=== PATIENT | male | born 1950 | race African-American/Black ===

== ENCOUNTER 2016-06-07 08:34 | Emergency (ER) | payer MEDICARE ==
[~2016-06-07] VITALS: Ht 165.1 cm; Wt 81.6 kg
[~2016-06-07 08:34] MED LIST: ASPI-482 PO; HYDR25TA9 PO
[2016-06-07 08:49] VITALS: BP 158/77
[2016-06-07] MEDS ORDERED: LIDOCAINE 1% / SOD BICARB 8.4% 20 ML VIAL. IJ ONE (09:00)
[2016-06-07] MEDS ORDERED: CIPR500T94 PO (09:18)
--- NOTE | 2016-06-07 09:18 | PHYS DOC ---
Past Medical History Past Medical History: Hypertension Additional Past Medical Histor: stomach ulcers Past Surgical History: Other Additional Past Surgical Histo: carpel tunnel, bilat shoulders, right wrist Alcohol Use: None Drug Use: None Adult General Chief Complaint Chief Complaint: OTHER COMPLAINTS [facility] HPI Patient is a 65 year old male presents to the emergency department with a history of a fish hook caught in the right side of his upper neck. No bleeding noted from the site. Patient states his tetanus immunization is up to date. Review of Systems Review of Systems Constitutional: Denies fever or chills [] Eyes: Denies change in visual acuity, redness, or eye pain [] HENT: Denies nasal congestion or sore throat [] Respiratory: Denies cough or shortness of breath [] Cardiovascular: No additional information not addressed in HPI Musculoskeletal: Denies back pain or joint pain [] Integument: Denies rash or skin lesions. C/o fish hook to the right neck Neurologic: Denies headache, focal weakness or sensory changes [] Current Medications Current Medications Current Medications Medications (Trade) Dose Ordered Sig/Fawad Start Time Stop Time Status Last Admin Dose Admin Lidocaine/Sodium Bicarbonate (Buffered Lidocaine 1%) 20 ml 1X ONCE 06/07/16 09:00 06/07/16 09:01 DC 06/07/16 09:00 20 ML Allergies Allergies Allergies Coded Allergies Type Severity Reaction Last Updated Verified Penicillins Allergy Mild hives 04/26/13 Yes Physical Exam Physical Exam Constitutional: Well developed, well nourished, no acute distress, non-toxic appearance. [] HENT: Normocephalic, atraumatic, bilateral external ears normal, oropharynx moist, no oral exudates, nose normal. [] Eyes: PERRLA, EOMI, conjunctiva normal, no discharge. [] Neck: Normal range of motion, no tenderness, supple, no stridor. [] Cardiovascular:Heart rate regular rhythm, no murmur [] Lungs & Thorax: Bilateral breath sounds clear to auscultation [] Skin: Warm, dry, no erythema, no rash. Fish hook noted to the right upper neck area, no bleeding noted, no redness or discharge. Back: No tenderness Extremities: No tenderness, no cyanosis, no clubbing, ROM intact, no edema. [] Neurologic: Alert and oriented X 3, normal motor function, normal sensory function, no focal deficits noted. [] Psychologic: Affect normal, judgement normal, mood normal. [] Current Patient Data Vital Signs Vital Signs Date Time Temp Pulse Resp B/P Pulse Ox O2 Delivery O2 Flow Rate FiO2 06/07/16 08:49 98.8 62 18 98 Room Air 98.8 EKG EKG [] Radiology/Procedures Radiology/Procedures [] Course & Med Decision Making Course & Med Decision Making Pertinent Labs and Imaging studies reviewed. (See chart for details) 3ml of 1% buffered lidocaine used to the area with site cleaned with betadine, hook was pushed thru the skin and cut with wire cutters. Area was then cleaned with betadine and bandaid applied over the site. Patient was provided with signs and symptoms of infection: redness, warmth, tenderness or any yellow/greenish drainage to the site. If this should happen he should followup with primary care provider. Clean the area with soap and water and apply antibiotic ointment twice a day. Cipro 500 mg BID times 10 days. Since symptoms to return back to emergency department as been provided. Patient agrees with discharge instructions treatment regimens and follow-up recommendations. [] Dragon Disclaimer Dragon Disclaimer This electronic medical record was generated, in whole or in part, using a voice recognition dictation system. Departure Departure Impression: Primary Impression: Puncture wound of neck Disposition: 01 HOME, SELF-CARE Condition: STABLE Referrals: NON,STAFF (PCP) Patient Instructions: Puncture Wound, [id number] Additional Instructions: Keep the area clean and dry. Clean the site with soap and water twice a day and apply antibiotic ointment. Tylenol or ibuprofen for pain and discomfort. Medication as prescribed. Follow-up through primary care physician if she should have any signs symptoms of infection: Redness, warmth, tenderness or any yellow/greenish drainage of a come from the site. This should occur follow-up through primary care physician immediately. Return to the emergency Department for sign symptoms of become worse. Follow-up to primary care physician next 7-10 days. Scripts Ciprofloxacin Hcl (Cipro)500 Mg Tablet1 Tab PO BID #20 TAB Prov:JUSTIN ALEX NP 06/07/16 JUSTIN ALEX NP Jun 07, 2016 09:18
== END 2016-06-07 09:32 | disposition home or self-care (01) ==
LOC: ER 08:34
DX: S11.84XA Puncture wound with foreign body of other specified part of neck, initial encounter (principal); I10 Essential (primary) hypertension; Z88.0 Allergy status to penicillin; X58.XXXA Exposure to other specified factors, initial encounter; Y93.89 Activity, other specified; Y99.8 Other external cause status; Y92.89 Other specified places as the place of occurrence of the external cause
CPT/HCPCS: 10120; 99284-25